=== PATIENT | male | born 1945 | race Caucasian/White ===

== ENCOUNTER 2016-07-22 18:42 | Emergency (ER) | payer MEDICARE, OTHER ==
[~2016-07-22 18:42] MED LIST: ALLO300T2 PO; ASPI-94 PO; ATEN1TAB73; CLON-352 PO; CLOP75 PO; GLUCTAB OR; INDO50CA PO; LISI-360 PO; NITR.3 SL; SIMV40TA OR
--- NOTE | 2016-07-22 19:02 | PD ---
HPI Chief Complaint: Alcohol intoxication Time Seen by Provider: 19:02 Travel History International Travel<30 days: No Contact w/Intl Traveler<30days: No History of Present Illness HPI 71-year-old male arrives to the ED by EMS under [facility]. Patient is somnolent but arouses easily to light touch. He endorses drinking "lots" of liquor and beer today. He complains of left knee pain, which he states is chronic. He has no other somatic complaints. He is asking for food. PFSH Past Medical History Arthritis: Yes Asthma: No Autoimmune Disease: No Blood Disorders: No Bipolar Disorder: Yes Anxiety: Yes Depression: Yes Heart Rhythm Problems: Yes (MURMUR) Cancer: No Cardiac Catheterization: Yes Cardiovascular Problems: Yes High Cholesterol: Yes Chest Pain: Yes Congestive Heart Failure: Yes COPD: Yes Cerebrovascular Accident: No Coronary Artery Disease: Yes Diabetes: Yes Diminished Hearing: No (BILATERAL HEARING AIDS NOT WITH PT) Endocrine: Yes Gastrointestinal Disorders: Yes GERD: Yes Glaucoma: Yes (RIGHT EYE) Gout: Yes Genitourinary: No Headaches: Yes Hepatitis: Yes (HEP A) Hiatal Hernia: No Hypertension: Yes Immune Disorder: Yes Kidney Stones: No Musculoskeletal: Yes (neuropathy) Neurologic: Yes (NEUROPATHY/ MULTIPLE CONCUSSIONS) Psychiatric: Yes (bipolar) Reproductive: No Respiratory: Yes Migraines: No Myocardial Infarction: Yes (2002) Renal Failure: No Seizures: Yes Sleep Apnea: No Thyroid Disease: Yes Ulcer: No PNEUMOCCOCAL Vaccine (Year): 2009 Past Surgical History Abdominal Surgery: Yes (GALLBLADDER REMOVE) AICD: No Arteriovenous Shunt: No Cardiac Surgery: No Cholecystectomy: Yes Coronary Stent: Yes (3 stents) Ear Surgery: No Eye Surgery: No Genitourinary Surgery: No Gynecologic Surgery: No Insulin Pump: No Joint Replacement: No Oral Surgery: No Pacemaker: No Thoracic Surgery: No Other Surgery: Yes (FACIAL BONE REPAIRS) Social History Alcohol Use: Yes (admitted alcoholic) Tobacco Use: Yes (1ppd) Substance Use: No Allergies-Medications (Allergen,Severity, Reaction): Coded Allergies: Iodine (Verified Allergy, Severe, 07/22/16) ALLERGY TO SHELLL FISH ... SWELLING White Fish (Verified Allergy, Severe, 07/22/16) Wellbutrin (Verified Allergy, Mild, RASH, 07/22/16) Reported Meds & Prescriptions Reported Meds & Active Scripts Active Clonidine Hcl (Clonidine HCl) 0.1 Mg Tab 0.1 Mg PO Q6-8HPRN Indocin (Indomethacin) 50 Mg Cap 50 Mg PO TID 50mg PO TID x 2 days, then 25mg PO TID X 3 days, Reported Clonidine Hcl (Clonidine HCl) 0.1 Mg Tab 0.1 Mg PO Q4-6HPRN Nitrostat (Nitroglycerin) 0.3 Mg Sub 0.3 Mg SL Ec-81 Aspirin (Aspirin) 81 Mg Tabec 81 Mg PO Metformin Hcl (Metformin HCl) 500 Mg Tab 500 Mg OR Allopurinol 300 Mg Tab 300 Mg PO Lisinopril 10 Mg Tab 10 Mg PO Simvastatin 40 Mg Tab 40 Mg OR Plavix (Clopidogrel Bisulfate) 75 Mg Tab 0 PO DAILY UNKNOWN DOSE Tenormin (Atenolol) 25 Mg Tab 0 UNKNOWN DOSE Nitrostat (Nitroglycerin) 0.3 Mg Sub 0.4 Mg SL Review of Systems Except as stated in HPI: all other systems reviewed are Neg Physical Exam Exam Limitations: Intoxication Narrative GENERAL: Well-nourished, well-developed intoxicated white male in no acute distress. SKIN: Focused skin assessment warm/dry. HEAD: Normocephalic. Atraumatic. EYES: No scleral icterus. No injection or drainage. NECK: Supple, trachea midline. No JVD or lymphadenopathy. CARDIOVASCULAR: Regular rate and rhythm without murmurs, gallops, or rubs. RESPIRATORY: Breath sounds equal bilaterally. No accessory muscle use. GASTROINTESTINAL: Abdomen soft, non-tender, nondistended. MUSCULOSKELETAL: No cyanosis, or edema. The right arm is in a short arm splint , neurovascularly intact. BACK: Nontender without obvious deformity. No CVA tenderness. Data Data Last Documented VS Vital Signs Date Time Temp Pulse Resp B/P Pulse Ox O2 Delivery O2 Flow Rate FiO2 07/22/16 19:08 99 18 130/73 95 Room Air Orders Alcohol (Ethanol) (07/22/16 19:43) Diet Diabetic (07/23/16 Breakfast) Labs Laboratory Tests Test 07/22/16 20:05 Ethyl Alcohol Level 235 MG/DL MDM Medical Decision Making Medical Screen Exam Complete: Yes Emergency Medical Condition: Yes Differential Diagnosis Acute alcohol intoxication versus chronic alcoholism versus substance abuse versus Narrative Course 71-year-old male arrives to the ED by EMS under [facility]. Patient is somnolent but arouses easily to light touch. He endorses drinking "lots" of liquor and beer today. He complains of left knee pain, which he states is chronic. He has no other somatic complaints. He is asking for food. Vitals reviewed. Physical exam reveals a somnolent white male who arouses easily to light touch. Patient is oriented to his surroundings. No signs of trauma. Chest CTA B, abdomen soft and nontender. Blood alcohol 235. Patient was placed on O2 monitoring and will be allowed to sleep it off, reevaluated for clinical sobriety before discharge. Diagnosis Primary Impression: Acute alcohol intoxication Qualified Code: F10.920 - Acute alcohol intoxication, uncomplicated Additional Impression: Chronic alcoholism Referrals: [facility] (Out patient) Additional Instructions: Seek outpatient treatment for your chronic alcoholism. Follow-up with [facility]. Return to the ED for any urgent or emergent medical condition. Disposition: 01 DISCHARGE HOME Condition: Stable Geena Muhammad Jul 22, 2016 19:02
[2016-07-22 19:08] VITALS: BP 130/73; PULSE 99; RESP 18; O2SAT 95
[2016-07-23] MEDS ORDERED: PRED-503 PO (06:30)
== END 2016-07-23 06:37 | disposition home or self-care (01) ==
LOC: NEPE 18:42 → NEPD 07-23 06:37
DX: F10.229 Alcohol dependence with intoxication, unspecified (principal); F31.9 Bipolar disorder, unspecified; F41.9 Anxiety disorder, unspecified; I50.9 Heart failure, unspecified; I10 Essential (primary) hypertension; I25.2 Old myocardial infarction; F17.210 Nicotine dependence, cigarettes, uncomplicated; Y90.7 Blood alcohol level of 200-239 mg/100 ml
CPT/HCPCS: 80307; 99283